=== PATIENT | male | born 1945 | race Caucasian/White ===

== ENCOUNTER 2017-02-11 20:06 | Emergency (ER) | payer MEDICARE ==
[2017-02-11 20:39] LABS: ADD MAN DIFF? NO
[2017-02-11 20:42] LABS: BASO # 0.1 x10^3/uL (0.0-0.2); BASO % 1 % (0-3); EOS # 0.3 x10^3/uL (0.0-0.7); EOS % 2 % (0-3); HEMATOCRIT 45.9 % (39.0-53.0); HEMOGLOBIN 15.1 g/dL (13.0-17.5); LYMPH # 2.6 x10^3/uL (1.0-4.8); LYMPH % 22 % (24-48); MEAN CORPUSCULAR HEMOGLOBIN 29 pg (25-35); MEAN CORPUSCULAR HGB CONC 33 g/dL (31-37); MEAN CORPUSCULAR VOLUME 88 fL (79-100); MONO % 8 % (0-9); NEUT # 8.1 x10^3uL (1.8-7.7); NEUT % 67 % (31-73); PLATELET COUNT 308 x10^3/uL (140-400); RED BLOOD COUNT 5.22 x10^6/uL (4.30-5.70); RED CELL DISTRIBUTION WIDTH 14.6 % (11.5-14.5); WHITE BLOOD COUNT 12.1 x10^3/uL (4.0-11.0)
[2017-02-11 20:58] LABS: ANION GAP 14 (6-14); BLOOD UREA NITROGEN 14 mg/dL (8-26); CALCIUM 9.1 mg/dL (8.5-10.1); CARBON DIOXIDE 27 mmol/L (21-32); CHLORIDE 100 mmol/L (98-107); CREATININE 1.1 mg/dL (0.7-1.3); GFR 66.2; GLUCOSE 144 mg/dL (70-99); POTASSIUM 3.5 mmol/L (3.5-5.1); SODIUM 141 mmol/L (136-145)
[2017-02-11] MEDS: predniSONE 10 MG TABLET PO (20:59)
[2017-02-11] MEDS: PROMETH/CODEINE 6.25/10MG 5 ML SYRUP. PO (20:59)
[2017-02-11 21:01] LABS: INFLUENZA A PATIENT NEGATIVE (NEGATIVE); INFLUENZA B PATIENT NEGATIVE (NEGATIVE); OBC FLU VALID
[2017-02-11] MEDS: IV NORMAL SALINE 500ML BAG 500 ML IV (21:05)
[2017-02-11 21:11] LABS: NT-PRO BNP 84 pg/mL (0-124)
== END 2017-02-11 22:30 | disposition home or self-care (01) ==
LOC: ER 20:06
DX: J44.1 Chronic obstructive pulmonary disease with (acute) exacerbation (principal); E86.0 Dehydration; Z90.2 Acquired absence of lung [part of]; F17.200 Nicotine dependence, unspecified, uncomplicated
CPT/HCPCS: 36415; 71045; 80048; 83880; 85025; 87804; 87804-59; 93005; 96360; 99285-25; J7040; J7512

== ENCOUNTER 2017-08-26 07:09 | Inpatient (IN) | payer MEDICARE, OTHER ==
[2017-08-26] MEDS: IPRATRPIUM/ALBUTEROL 0.5/2.5MG 3 ML NEBU. NEB ×4 (07:24→19:40)
[2017-08-26] MEDS: methylPREDNISolone SOD SUCC PF 125 MG/2 ML VIAL. IV (08:14)
[2017-08-26] MEDS: IV NORMAL SALINE 1000ML BAG 1,000 ML IV (08:15)
[2017-08-26 08:27] LABS: BASO # 0.1 x10^3/uL (0.0-0.2); BASO % 1 % (0-3); EOS # 0.1 x10^3/uL (0.0-0.7); EOS % 1 % (0-3); HEMATOCRIT 42.9 % (39.0-53.0); HEMOGLOBIN 14.5 g/dL (13.0-17.5); LYMPH # 1.4 x10^3/uL (1.0-4.8); LYMPH % 9 % (24-48); MEAN CORPUSCULAR HEMOGLOBIN 29 pg (25-35); MEAN CORPUSCULAR HGB CONC 34 g/dL (31-37); MEAN CORPUSCULAR VOLUME 87 fL (79-100); MONO % 14 % (0-9); NEUT # 10.9 x10^3uL (1.8-7.7); NEUT % 76 % (31-73); PLATELET COUNT 216 x10^3/uL (140-400); RED BLOOD COUNT 4.93 x10^6/uL (4.30-5.70); RED CELL DISTRIBUTION WIDTH 14.8 % (11.5-14.5); WHITE BLOOD COUNT 14.4 x10^3/uL (4.0-11.0)
[2017-08-26 08:38] LABS: ANION GAP 10 (6-14); BLOOD UREA NITROGEN 11 mg/dL (8-26); CALCIUM 9.3 mg/dL (8.5-10.1); CARBON DIOXIDE 28 mmol/L (21-32); CHLORIDE 98 mmol/L (98-107); CREATININE 1.1 mg/dL (0.7-1.3); GFR 66.2; GLUCOSE 128 mg/dL (70-99); SODIUM 136 mmol/L (136-145)
[2017-08-26 08:48] LABS: TROPONINI < 0.017 ng/mL (0.000-0.055)
[2017-08-26 08:49] LABS: LACTIC ACID 1.8 mmol/L (0.4-2.0)
[2017-08-26 08:50] LABS: NT-PRO BNP 230 pg/mL (0-124)
[2017-08-26 09:14] LABS: ADD MAN DIFF? YES
[2017-08-26] MEDS: IOHEXOL 300 MG/ML 100ML VIAL. IV (09:30)
[2017-08-26] MEDS ORDERED: CONTRAST GIVEN. MC (09:30)
[2017-08-26] MEDS: ALBUTEROL SULFATE 2.5 MG/3 ML NEBU. CONT NEB (09:44)
[2017-08-26] MEDS: ACETAMINOPHEN 500 MG TABLET PO (10:12)
[2017-08-26 10:22] LABS: PROCALCITONIN 0.11 ng/mL (0.00-0.10)
[2017-08-26] MEDS ORDERED: AZITHROMYCIN 500 MG in IV NORMAL SALINE 250ML 250 ML IV (10:45)
[2017-08-26] MEDS ORDERED: MORPHINE SULFATE 4 MG/ML DISP.SYRIN. IV (10:45)
[2017-08-26] MEDS ORDERED: ONDANSETRON PF 4 MG/2 ML VIAL. IV (10:45)
[2017-08-26] MEDS: AZITHRMYCN 500MG IVPB FOR OMNI 250 ML IV (11:04)
[2017-08-26 11:18] LABS: LACTIC ACID 0.9 mmol/L (0.4-2.0)
[2017-08-26 11:54] LABS: % BANDS 9 % (0-9); % EOS 2 % (0-5); % LYMPHS 13 % (24-48); % MONOS 14 % (0-10); % SEGS 62 % (35-66); ANISOCYTOSIS PRESENT; PLT ESTIMATE ADEQUATE (ADEQUATE)
[2017-08-26] MEDS: ENOXAPARIN 40 MG/0.4 ML SYRINGE. SQ (15:12)
[2017-08-26] MEDS: BUDESONIDE 0.5 MG/2 ML NEBU. NEB ×2 (16:19→19:40)
[2017-08-26 16:40] LABS: TROPONINI < 0.017 ng/mL (0.000-0.055)
[2017-08-26] MEDS: LACTOBACILLUS RHAMNOSUS GG 1 CAPSULE. PO (20:56)
[2017-08-27] MEDS: IPRATRPIUM/ALBUTEROL 0.5/2.5MG 3 ML NEBU. NEB ×6 (04:00→21:29)
[2017-08-27 04:46] LABS: ADD MAN DIFF? NO
[2017-08-27 04:48] LABS: BASO % 0 % (0-3); EOS % 0 % (0-3); HEMATOCRIT 39.2 % (39.0-53.0); HEMOGLOBIN 13.1 g/dL (13.0-17.5); LYMPH # 0.8 x10^3/uL (1.0-4.8); LYMPH % 8 % (24-48); MEAN CORPUSCULAR HEMOGLOBIN 29 pg (25-35); MEAN CORPUSCULAR HGB CONC 34 g/dL (31-37); MEAN CORPUSCULAR VOLUME 88 fL (79-100); MONO # 0.8 x10^3/uL (0.0-1.1); MONO % 8 % (0-9); NEUT # 9.4 x10^3uL (1.8-7.7); NEUT % 85 % (31-73); PLATELET COUNT 226 x10^3/uL (140-400); RED BLOOD COUNT 4.48 x10^6/uL (4.30-5.70); RED CELL DISTRIBUTION WIDTH 14.9 % (11.5-14.5); WHITE BLOOD COUNT 11.1 x10^3/uL (4.0-11.0)
[2017-08-27] MEDS: BUDESONIDE 0.5 MG/2 ML NEBU. NEB ×2 (07:25→21:29)
[2017-08-27] MEDS: AZITHROMYCIN 250 MG TABLET. PO (08:32)
[2017-08-27] MEDS: LACTOBACILLUS RHAMNOSUS GG 1 CAPSULE. PO ×2 (08:32→20:27)
[2017-08-27] MEDS: ENOXAPARIN 40 MG/0.4 ML SYRINGE. SQ (08:32)
[2017-08-27] MEDS: cefTRIAXone IV Push 1 GM VIAL. IVP (08:33)
[2017-08-27] MEDS: methylPREDNISolone SOD SUCC PF 125 MG/2 ML VIAL. IV (13:39)
[2017-08-28] MEDS: IPRATRPIUM/ALBUTEROL 0.5/2.5MG 3 ML NEBU. NEB ×3 (04:29→07:48)
[2017-08-28] MEDS: BUDESONIDE 0.5 MG/2 ML NEBU. NEB (07:48)
[2017-08-28] MEDS: predniSONE 20 MG TABLET PO (08:42)
[2017-08-28] MEDS: AZITHROMYCIN 250 MG TABLET. PO (08:42)
[2017-08-28] MEDS: ENOXAPARIN 40 MG/0.4 ML SYRINGE. SQ (08:43)
[2017-08-28] MEDS: LACTOBACILLUS RHAMNOSUS GG 1 CAPSULE. PO (08:43)
[2017-08-28] MEDS: cefTRIAXone IV Push 1 GM VIAL. IVP (08:43)
== END 2017-08-28 10:37 | disposition home or self-care (01) | DRG 872 ==
LOC: ER 07:09 → 5 NORTH 10:30
DX: A41.9 Sepsis, unspecified organism (principal); J44.1 Chronic obstructive pulmonary disease with (acute) exacerbation; J44.0 Chronic obstructive pulmonary disease with (acute) lower respiratory infection; J20.9 Acute bronchitis, unspecified; F17.210 Nicotine dependence, cigarettes, uncomplicated; I10 Essential (primary) hypertension; Z85.118 Personal history of other malignant neoplasm of bronchus and lung; Z82.0 Family history of epilepsy and other diseases of the nervous system; Z90.2 Acquired absence of lung [part of]; Z90.89 Acquired absence of other organs
CPT/HCPCS: 36415; 71045; 71275; 80048; 83605; 83880; 84145; 84484; 85007; 85025; 87040; 93005; 94640; 94644; 94760; 96361; 96365; 96375; 99285; 99285-25; 99406; J0456; J0690; J0696; J1650; J2930; J7030; J7512; J7613; J7620; J7626; Q0144; Q9967